=== PATIENT | female | born 1950 | race Two or more races ===

== ENCOUNTER 2024-11-03 10:33 | Day surgery (SDC) | payer MEDICARE, SELFPAY ==
[2024-10-31 13:49] VITALS: BMI 34.4
[2024-11-03 10:57] VITALS: BP 151/113; PULSE 73; RESP 18; TEMP 37.2; O2SAT 97
[2024-11-03] MEDS: LACTATED RINGERS 1000ML 1,000 ML 25 ML IV (11:06)
--- NOTE | 2024-11-03 11:20 | EXP.ANES.CKL ---
[facility] Disclaimer: The information contained in this section may have been updated after the patient was seen, as this information can be updated by other users. Medical History Urinary tract infection Menopause Osteoarthritis History of hip fracture Irritable bowel syndrome (IBS) History of cataract Deep vein thrombosis (DVT) Hyperlipidemia Hypertension Surgical History (Updated 11/03/24 @ 11:06 by Laura Franco RN) History of back surgery History of appendectomy History of hysterectomy History of knee replacement History of left hip replacement History of colonoscopy Family History Mother Brain cancer Sister Family history of cancer Social History (Updated 11/03/24 @ 11:05 by Laura Franco RN) Smoking Status: Never smoker alcohol intake: current substance use type: denies use current occupational status: retired Travel in the last 8 weeks: None caffeine: Yes [facility] Anesthesia Checklist Patient Identification Patient Identification: Arm Band Structural Data Admitted From: Home Planned Operative Procedure/s: Colonoscopy Consent for Planned Operative Procedure(s) Verified: Yes Verified Documents: Surgical Consent and History and Physical NPO Status Verified Time NPO: 09:45 Additional verifications Anesthesia Reactions: No Airway Assessment Mallampati Score:: Class II C-Spine Mobility Assessed: Yes TMJ Mobility Assessed: Yes Dentition: Good Dentition Neurological Assessment Level of Consciousness: Awake, Alert and Appropriate Anesthesia Plan Anesthesia Risk discussed: Yes Anesthesia Plan: Verified ASA Class: III Anesthesia Type: MAC
--- NOTE | 2024-11-03 11:41 | P.HP_ITS ---
History of Present Illness *Admission Date: 11/03/24 *Reason for visit:: Bright red blood per rectum *History of present illness: Mrs. Blanton is a 74-year-old female who is here for diagnostic colonoscopy secondary to bright red blood per rectum. The examination is deemed medically necessary for diagnostic colonoscopy. The patient has been seen, interviewed and examined prior to the procedure by both myself and the anesthesia provider. [facility] Disclaimer: The information contained in this section may have been updated after the patient was seen, as this information can be updated by other users. Medical History (Updated 11/03/24 @ 11:42 by Parish Welsh II, MD) Urinary tract infection Menopause Osteoarthritis History of hip fracture Irritable bowel syndrome (IBS) History of cataract Deep vein thrombosis (DVT) Hyperlipidemia Hypertension Surgical History (Updated 11/03/24 @ 11:06 by Laura Franco RN) History of back surgery History of appendectomy History of hysterectomy History of knee replacement History of left hip replacement History of colonoscopy Family History Mother Brain cancer Sister Family history of cancer Social History (Updated 11/03/24 @ 11:22 by Paul Rico CRNA) Smoking Status: Never smoker alcohol intake: current substance use type: denies use current occupational status: retired Travel in the last 8 weeks: None caffeine: Yes Have you lived/traveled outside [place] in past 30 days?: No Contact w/someone who lives/traveled outside [place] past 30 days?: No Exposure to someone with infectious disease in past 14 days?: No Do you have a fever (greater than 100.4 F or 38 C)?: No Have you tested positive for COVID-19: Yes Exposed to someone with COVID-19 in past 14 days?: No Do you have a sore throat?: No Do you have a cough?: No Do you have any weakness?: No Are you experiencing any nausea/vomitting?: No Do you have any diarrhea?: No Are you experiencing any unusual bleeding?: No Do you have any muscle aches/pain?: No Do you have any abdominal pain?: No Are you experiencing loss of taste or smell?: No Other Medical History Have you received the Pneumonia Vaccine: Yes Review of Systems Review of Systems Review of systems (narrative): Negative *Cardiovascular Comments: Negative *Gastrointestinal Comments: Negative *Genitourinary Comments: Negative *Musculoskeletal Comments: Negative *Neurologic Comments: Negative Meds Home Medications and Allergies Home Medications ?Medication ?Instructions ?Recorded ?Confirmed ?Type apixaban 5 mg tablet (Eliquis) 5 mg PO BID 09/03/24 11/03/24 History bisoprolol fumarate 10 mg tablet 10 mg PO DAILY 09/03/24 11/03/24 History buspirone 10 mg tablet 10 mg PO BID 09/03/24 11/03/24 History cholecalciferol (vitamin D3) 50 50 mcg PO DAILY 09/03/24 11/03/24 History mcg (2,000 unit) capsule lisinopril 30 mg tablet 30 mg PO DAILY 09/03/24 11/03/24 History lovastatin 40 mg tablet 40 mg PO HS 09/03/24 11/03/24 History montelukast 10 mg tablet 10 mg PO HS 09/03/24 11/03/24 History naloxegol 25 mg tablet (Movantik) 25 mg PO DAILY 09/03/24 11/03/24 History tramadol 50 mg tablet 50 mg PO TID 09/03/24 11/03/24 History sodium,potassium,mag sulfates 17.5 See Rx Instructions PO .COMPLEX 10/23/24 Rx gram-3.13 gram-1.6 gram oral soln #354 mL (Suprep Bowel Prep Kit) New Prescriptions to Start Prescriptions: Allergies Allergy/AdvReac Type Severity Reaction Status Date / Time latex Allergy Rash Verified 11/03/24 10:51 morphine AdvReac Nausea Verified 11/03/24 10:51 Exam Data for Last 24 hours Vital signs and Labs for Last 24 Hours: Temp Pulse Resp BP Pulse Ox O2 Del Method 99.0 F 73 18 151/113 H 97 Room Air 11/03/24 10:57 11/03/24 10:57 11/03/24 10:57 11/03/24 10:57 11/03/24 10:57 11/03/24 10:57 I & O for Last 24 hours: Intake & Output 10/31/24 11/01/24 11/02/24 11/03/24 23:59 23:59 23:59 23:59 Weight 240 lb *Routine HEENT Exam Head: Present normocephalic Eye: Present EOMI and PERRL ENT: Present mucous membranes moist *Routine Neck Exam Neck: Present supple *Routine Respiratory Exam Respiratory: Present CTA bilaterally *Routine Cardiovascular Exam Cardiovascular: Present RRR *Routine Abdominal Exam Abdominal: Present soft and normoactive bowel sounds; Absent tenderness *Routine Rectal Exam Rectal:: deferred *Routine Genitalia Exam Genitalia:: deferred *Routine Extremities Exam Extremities: Absent cyanosis, clubbing or edema *Routine Skin Exam Skin: Present warm; Absent rash *Routine Neurological Exam Neurological: Present alert and oriented X3 Assessment and Plan *Assessment and plan (1) BRBPR (bright red blood per rectum): Status: Acute Category: Medical Code(s): K62.5 - Hemorrhage of anus and rectum Plan A/P: 1. Bright red blood per rectum (new) is the preprocedural diagnosis. The patient will be anesthetized/sedated using MAC sedation. The patient has been seen and examined. Cardiac and lung assessment prior to the examination is stable. Proceed with planned diagnostic colonoscopy
[2024-11-03 11:51] VITALS: O2SAT 97
--- NOTE | 2024-11-03 11:51 | HMH.PROCNOTE ---
[facility] Procedure Note Date: 11/03/24 Time: 12:08 Procedure Note:: Colonoscopy Procedure Report: Colonoscopy with cold biopsy and hemorrhoid band ligation Endoscopist: Parish Welsh II, MD Referring physician: Nelida Ortiz MD [address] [place] [id number] Date of Procedure: November 03, 2024 Equipment: Olympus 190 variable stiffness pediatric colonoscope Sedation: MAC sedation Indication: Mrs. Blanton is a 74-year-old female with longstanding constipation that is multifactorial (outlet dysfunction constipation and medication induced constipation (tramadol). The patient has been on various regimens. She has been on Motegrity, Linzess, Perdiem, Mirafiber and Movantik. The patient was started on anticoagulation with Xarelto and switched to Eliquis. More recently, she has had bright red blood per rectum that did not completely resolve with hemorrhoid suppositories. This did resolve with an alternative therapy. Her last colonoscopy was 2 or 3 years ago. She reports no abdominal pain or weight loss. She reports no hemorrhoidal prolapse. Procedure: Prior to the procedure, a history and physical exam was performed, and patient's medications and allergies were reviewed. The risks, benefits and alternatives of the sedation and procedure were discussed with the patient. All questions were answered and informed consent was obtained. The patient was brought to the procedure room. Patient identification and proposed procedure were verified by the physician and the nurse. The patient was placed in a left lateral decubitus position and the scope was passed under direct vision. Throughout the procedure, the patient's blood pressure, pulse, and oxygen saturations were monitored continuously. The colonoscopy was accomplished without difficulty. The patient tolerated the procedure well. Findings: On digital rectal examination there was normal rectal tone. There were no external hemorrhoids. The colonoscope was introduced through the anal canal to the rectum and advanced to the cecum. The ileocecal valve and appendiceal orifice were identified. The scope was advanced a short distance into the ileum which appeared grossly normal. The scope was then withdrawn into the colon. The cecum, ascending, transverse colon were normal. There was mild melanosis coli. There was a diminutive 2 to 3 mm polyp in the transverse colon removed via cold biopsy. The remainder of the descending and sigmoid were normal. There were a few scattered diverticuli in the left colon. Within the rectum, the scope was retroflexed and there were grade 2-3 internal hemorrhoids. 3 columns of hemorrhoids were banded using 3 bands with excellent ligation effect. The preparation was good throughout with [place] Preparation Score of 8 out of 9. The cecal time was 14 minutes. Impression: 1. Diminutive 2 to 3 mm transverse colon polyp 2. Mild left-sided diverticulosis 3. Mild melanosis coli 4. Grade 2-3 internal hemorrhoids status post band ligation x 3 Plan: I do feel that the hemorrhoidal bleeding is in part related to her anticoagulation. She should have clinical improvement with the hemorrhoid banding. I would continue combined MiraLAX plus Konsyl routinely. She will continue the other adjuvant regimen for her chronic constipation. I will follow-up the benign polyp histology.
[2024-11-03 12:25] VITALS: BP 116/69; PULSE 76; RESP 16; TEMP 36.4; O2SAT 93
[2024-11-03 12:35] VITALS: BP 136/79; PULSE 84; RESP 18; O2SAT 95
[2024-11-03 12:45] VITALS: BP 155/87; PULSE 82; RESP 18; O2SAT 94
[2024-11-03 12:55] VITALS: BP 148/97; PULSE 82; RESP 18; O2SAT 95
== END 2024-11-03 12:55 | disposition home or self-care (01) ==
PROVIDERS: Visit Provider Internal Medicine Gastroenterology
PROC: (CPT 45380; principal; 2024-11-03 13:00)
DX: K62.5 Hemorrhage of anus and rectum (principal); K59.00 Constipation, unspecified; K63.5 Polyp of colon; K57.30 Diverticulosis of large intestine without perforation or abscess without bleeding; K63.89 Other specified diseases of intestine; K64.8 Other hemorrhoids
CPT/HCPCS: 45380; 45398; C1889; J7120